=== PATIENT | female | born 1990 | race Caucasian/White ===

== ENCOUNTER → 2016-07-28 08:06 | Outpatient (CLI) | payer BC | END | disposition home or self-care (01) | LOC: D.US 08:00 | DX: R10.11 Right upper quadrant pain (principal); R11.0 Nausea ==

== ENCOUNTER → 2016-08-21 07:37 | Outpatient (CLI) | payer BC | END | disposition home or self-care (01) | LOC: D.NM 07:37 | DX: R10.11 Right upper quadrant pain (principal) ==